=== PATIENT | female | born 1955 | race African-American/Black ===

== ENCOUNTER 2016-09-18 09:38 | Emergency (ER) | payer SELFPAY ==
[~2016-09-18] VITALS: Ht 175.3 cm; Wt 75.0 kg
[~2016-09-18 09:38] MED LIST: Z.0.NO CURRENT MEDS
[2016-09-18 09:39] VITALS: BP 110/62; PULSE 111; RESP 20; TEMP 98.4; O2SAT 99
--- NOTE | 2016-09-18 09:50 | PD ---
Physical Exam Time Seen by Provider: 09:47 Narrative 60yo F c/o itching all over w/ accompanied rash. Denies airway edema, swelling of tongue, fever, vomiting. Patient seen in triage. VS reviewed. Awaiting bed placement. Data Data Last Documented VS Vital Signs Date Time Temp Pulse Resp B/P Pulse Ox O2 Delivery O2 Flow Rate FiO2 09/18/16 09:39 98.4 111 20 110/62 99 Room Air MDM Supervised Visit with COURTNEY: Isha Bey Sep 18, 2016 09:50
--- NOTE | 2016-09-18 09:58 | PD ---
HPI Chief Complaint: Allergic/Adverse Reaction Time Seen by Provider: 09:54 Travel History International Travel<30 days: No Contact w/Intl Traveler<30days: No Traveled to known affect area: No History of Present Illness HPI 60-year-old female came to the emergency room with history of hives for past 3 days. Patient took some of her Benadryl but does not know how old they were and did not have any relief. She is very pruritic from this rash. Vital signs otherwise stable. No respiratory or GI issues. It is everywhere on her body especially her upper extremity and trunk. Patient was tachycardic upon arrival with heart rate of 111 bpm. However she does not appear to be in any distress. [facility] Past Medical History Narrative Medical List of her past medical, surgical, social and family history was reviewed from the nursing note. Blood Disorders: No Cancer: No Cardiovascular Problems: No Diabetes: No Endocrine: No Glaucoma: No Genitourinary: No Hepatitis: No Hiatal Hernia: No Hypertension: No Immune Disorder: No Musculoskeletal: No Neurologic: No Psychiatric: No Reproductive: No Respiratory: No Thyroid Disease: No : 2 Para: 2 Miscarriage: 0 : 0 Past Surgical History Genitourinary Surgery: Yes (INSERTION STENT) Gynecologic Surgery: Yes (ABD. HYST. BSO ) Pacemaker: No Social History Alcohol Use: No Tobacco Use: No Substance Use: No Allergies-Medications (Allergen,Severity, Reaction): Coded Allergies: No Known Allergies (Verified , 09/18/16) Comments No known drug allergies. Reported Meds & Prescriptions Reported Meds & Active Scripts Active Prednisone 20 Mg Tab 20 Mg PO BID 3 Days Benadryl Allergy (Diphenhydramine HCl) 25 Mg Cap 2 Cap PO Q6HR 3 Days Narrative Medication List of her home medications reviewed from the nursing note. Review of Systems Except as stated in HPI: all other systems reviewed are Neg Physical Exam Narrative GENERAL: Awake, alert, no obvious distress SKIN: Focused skin assessment warm/dry. Large macular papular erythematous rash on the upper extremity and trunk. It is blanching. They are anywhere from 2 cm to 5 cm in diameter. Well-circumscribed. HEAD: Atraumatic. Normocephalic. EYES: Pupils equal and round. No scleral icterus. No injection or drainage. ENT: No nasal bleeding or discharge. Mucous membranes pink and moist. NECK: Trachea midline. No JVD. CARDIOVASCULAR: Regular rate and rhythm. No murmur appreciated. RESPIRATORY: No accessory muscle use. Clear to auscultation. Breath sounds equal bilaterally. GASTROINTESTINAL: Abdomen soft, non-tender, nondistended. Hepatic and splenic margins not palpable. MUSCULOSKELETAL: No obvious deformities. No clubbing. No cyanosis. No edema. NEUROLOGICAL: Awake and alert. No obvious cranial nerve deficits. Motor grossly within normal limits. Normal speech. PSYCHIATRIC: Appropriate mood and affect; insight and judgment normal. Data Data Last Documented VS Vital Signs Date Time Temp Pulse Resp B/P Pulse Ox O2 Delivery O2 Flow Rate FiO2 09/18/16 11:26 86 16 141/63 99 09/18/16 10:01 Room Air 09/18/16 09:39 98.4 Orders Diphenhydramine (Benadryl) (09/18/16 10:45) Prednisone (Deltasone) (09/18/16 10:45) [facility] Medical Decision Making Medical Screen Exam Complete: Yes Emergency Medical Condition: Yes Medical Record Reviewed: Yes Differential Diagnosis Urticaria. Narrative Course 10:56 AM patient was given 50 mg of by mouth Benadryl and 60 mg of prednisone. She will be discharged home with prescriptions for those. Procedures EKG Prior to Arrival: No Diagnosis Primary Impression: Urticaria Referrals: Primary Care Physician Additional Instructions: Please return to the ER if the condition worsens or any other new concerns. Take the medication as per the prescription direction. Do not drive while on Benadryl since it'll make you groggy. Follow-up with your primary care in couple days. Med/Other Pt SpecificInfo: Prescription(s) given Scripts Prednisone 20 Mg Tab20 Mg PO BID 3 Days Ref 0 Prov:Beba Georges MD 09/18/16 Diphenhydramine HCl (Benadryl Allergy)25 Mg Cap2 Cap PO Q6HR 3 Days Prov:Beba Georges MD 09/18/16 Disposition: 01 DISCHARGE HOME Condition: Stable Beba Georges MD Sep 18, 2016 09:57
[2016-09-18] MEDS ORDERED: predniSONE 20 MG TAB PO ONE (10:45)
[2016-09-18] MEDS ORDERED: diphenhydrAMINE HCL 50 MG CAP PO ONE (10:45)
[2016-09-18] MEDS ORDERED: BENA25CA4 PO (10:59)
[2016-09-18] MEDS ORDERED: PRED20 PO (10:59)
[2016-09-18 11:26] VITALS: BP 141/63
== END 2016-09-18 11:33 | disposition home or self-care (01) ==
LOC: NEPE 09:38
DX: L50.9 Urticaria, unspecified (principal)
CPT/HCPCS: 99283; J7512; Q0163

== ENCOUNTER 2016-09-26 13:16 | Emergency (ER) | payer OTHER ==
[~2016-09-26] VITALS: Ht 175.3 cm; Wt 70.0 kg
[~2016-09-26 13:16] MED LIST changes: +BENA25CA4 PO; +PRED20 PO; -Z.0.NO CURRENT MEDS
[2016-09-26 13:18] VITALS: BP 150/69; PULSE 82; RESP 20; TEMP 98.2; O2SAT 100
[2016-09-26] MEDS ORDERED: diphenhydrAMINE HCL 50 MG/ML VIAL IV PUSH ONE (14:45)
[2016-09-26] MEDS ORDERED: methylPREDNISolone SOD SUCC 125 MG/2 ML VIAL IV PUSH ONE (14:45)
[2016-09-26] MEDS ORDERED: FAMOTIDINE 20 MG/2 ML VIAL IV PUSH ONE (14:45)
[2016-09-26] MEDS ORDERED: BENA25TA6 PO (15:00)
--- NOTE | 2016-09-26 15:00 | PD ---
HPI Chief Complaint: Skin Problem Time Seen by Provider: 14:27 Travel History International Travel<30 days: No Contact w/Intl Traveler<30days: No Traveled to known affect area: No History of Present Illness HPI This is a 60-year-old female who presents to the emergency department having had one day of an itchy rash on her arms and legs, associated with swelling of her right lip and some scratching in her throat, constant, moderate severity. She says something very similar happen to her about a week ago. 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 She has been working there for a while and is never had a problem. She says she does fine when she' s not in work when she goes to work she develops these symptoms. Last week she was treated with prednisone and Benadryl and her symptoms improved however they recurred today. She denies any shortness of breath, lightheadedness, diarrhea or vomiting. PFSH Past Medical History Blood Disorders: No Cancer: No Cardiovascular Problems: No Diabetes: No Endocrine: No Glaucoma: No Genitourinary: No Hepatitis: No Hiatal Hernia: No Hypertension: No Immune Disorder: No Medical other: Yes Musculoskeletal: No Neurologic: No Psychiatric: No Reproductive: No Respiratory: No Immunizations Current: No Thyroid Disease: No Menopausal: Yes : 2 Para: 2 Miscarriage: 0 : 0 Past Surgical History Genitourinary Surgery: Yes (INSERTION STENT) Gynecologic Surgery: Yes (ABD. HYST. BSO ) Pacemaker: No Other Surgery: Yes Social History Alcohol Use: No Tobacco Use: No Substance Use: No Allergies-Medications (Allergen,Severity, Reaction): Coded Allergies: No Known Allergies (Verified , 09/18/16) Reported Meds & Prescriptions Reported Meds & Active Scripts Active Reported Benadryl Allergy (Diphenhydramine HCl) 25 Mg Tablet 50 Mg PO Q6HR PRN Review of Systems Except as stated in HPI: all other systems reviewed are Neg Physical Exam Narrative GENERAL:Well appearing, no acute distress SKIN: Raised erythematous patchy rash over the bilateral upper extremities and back. HEAD: Atraumatic. Normocephalic. EYES: Pupils equal and round. No injection or drainage. ENT: Moist mucous membranes. Mild edema of the right upper lip. Normal- appearing posterior pharynx with a normal voice. NECK: Trachea midline. CARDIOVASCULAR: Regular rate and rhythm. No murmur appreciated. RESPIRATORY: Clear to auscultation. Breath sounds equal bilaterally. GASTROINTESTINAL: Abdomen soft, non-tender, nondistended. MUSCULOSKELETAL: No obvious deformities. NEUROLOGICAL: Awake and alert. No obvious cranial nerve deficits. Moving all extremities. PSYCHIATRIC: Appropriate mood and affect; insight and judgment normal. Data Data Last Documented VS Vital Signs Date Time Temp Pulse Resp B/P Pulse Ox O2 Delivery O2 Flow Rate FiO2 09/26/16 13:18 98.2 82 20 150/69 100 Room Air Orders Diphenhydramine Inj (Benadryl Inj) (09/26/16 14:45) Methylprednisolone So Succ Inj (Solumedr (09/26/16 14:45) Famotidine Inj (Pepcid Inj) (09/26/16 14:45) Vascular Access Team Consult/P PRN (09/26/16 15:08) Vascular Poc Ultrasound (09/26/16 ) [facility] Medical Decision Making Medical Screen Exam Complete: Yes Emergency Medical Condition: Yes Interpretation(s) Afebrile, no tachycardia, hypertensive Differential Diagnosis Acute allergic reaction, anaphylaxis Narrative Course This is a 60-year-old female who presents to the emergency department with an acute allergic reaction. It seems to be associated with her workplace. She has some edema of the right lip but no posterior pharyngeal involvement or laryngeal involvement that I can appreciate on exam. She was given Benadryl, steroids and feels much better on reassessment. Plan for a longer steroid taper. Patient was advised to avoid her work environment and she likely needs relocation of her job. Diagnosis Primary Impression: Acute allergic reaction Qualified Code: T78.40XA - Acute allergic reaction, initial encounter Patient Instructions: General Instructions Additional Instructions: If you develop swelling of the throat or coughing a lot, wheezing or trouble breathing, throwing up or having diarrhea, feeling dizzy or passing out, or spreading of your rash return to the emergency room immediately as you may be having a life threatening allergic reaction. Complete your course of steroids and take benadryl every 4 hours for the next 48 hours and then as needed for itching or other symptoms. Med/Other Pt SpecificInfo: Prescription(s) given Scripts Prednisone (48) 5 mg tab Dose Pack 5 Mg Dspk5 Mg PO DIRECTED #1 DSPK Ref 0 Prov:Highet,Carmen H. MD 09/26/16 Diphenhydramine 25 Mg Cap25 Mg PO Q6H PRN (ALLERGIES) 2 Days Ref 0 Prov:Carmen Baca MD 09/26/16 Disposition: 01 DISCHARGE HOME Condition: Stable Carmen Baca MD Sep 26, 2016 15:00
[2016-09-26] MEDS ORDERED: DIPH25CA PO (16:11)
[2016-09-26] MEDS ORDERED: PRED5PAK2 PO (16:11)
[2016-09-26 17:28] VITALS: BP 158/66; PULSE 72; RESP 16; O2SAT 98
== END 2016-09-26 17:44 | disposition home or self-care (01) ==
LOC: NEPD 13:16
DX: T78.40XA Allergy, unspecified, initial encounter (principal)
CPT/HCPCS: 96374; 96375; 99284; J1200; J2930